=== PATIENT | female | born 1945 | race Caucasian/White ===

== ENCOUNTER → 2016-05-28 | Outpatient (CLI) | payer OTHER, BC ==
[~2016-05-28] MED LIST: CALC500C70 PO; CHOL400T; LEVO100T PO
[2016-05-28 09:26] LABS: BASO % 0.4 %; BASO ABS # 0.02 K/uL (0-0.2); COMPLETE YES; EOS % 1.9 %; HEMATOCRIT 36.7 % (37-47); IG% 0.2 %; LYMPH % 35.8 %; LYMPH ABS # 1.86 K/uL (1.2-3.4); MEAN CELL VOLUME 93.6 fL (80-100); MEAN CORPUSCULAR HEMOGLOBIN 30.4 pg (25-34); MEAN CORPUSCULAR HGB CONC 32.4 g/dl (32-36); MEAN PLATELET VOLUME 11.5 fL (7.4-10.4); NEUT % 55.7 %; PLATELET COUNT 330 K/uL (130-400); RED BLOOD COUNT 3.92 M/uL (4.2-5.4)
[2016-05-28 09:58] LABS: CHOLESTEROL/HDL RATIO 4.3; THYROID STIMULATING HORMONE 3.51 uIu/ml (0.300-4.500)
== END | disposition home or self-care (01) ==
LOC: C.LAB1850 07:45
PROVIDERS: ATTEND Internal Medicine
DX: E55.9 Vitamin D deficiency, unspecified (principal); E78.5 Hyperlipidemia, unspecified; E03.9 Hypothyroidism, unspecified

== ENCOUNTER → 2016-06-14 | Outpatient (CLI) | payer OTHER, BC ==
[2016-06-14 16:30] LABS: BASO % 0.3 %; BASO ABS # 0.02 K/uL (0-0.2); COMPLETE YES; EOS % 1.4 %; HEMATOCRIT 35.2 % (37-47); IG% 0.1 %; LYMPH % 24.2 %; LYMPH ABS # 1.78 K/uL (1.2-3.4); MEAN CELL VOLUME 93.1 fL (80-100); MEAN CORPUSCULAR HEMOGLOBIN 30.7 pg (25-34); MEAN PLATELET VOLUME 11.5 fL (7.4-10.4); MONO % 6.3 %; NEUT % 67.7 %; PLATELET COUNT 235 K/uL (130-400); RED BLOOD COUNT 3.78 M/uL (4.2-5.4); WHITE BLOOD COUNT 7.35 K/uL (4.8-10.8)
[2016-06-14 16:48] LABS: BLOOD UREA NITROGEN 14 mg/dl (7-18); BUN/CREATININE RATIO 14.9 (10-20); CARBON DIOXIDE 32 mmol/L (21-32); CHLORIDE 104 mmol/L (98-107); CREATININE 0.93 mg/dl (0.60-1.20); GLUCOSE 84 mg/dl (70-99); POTASSIUM 3.9 mmol/L (3.5-5.1); SODIUM 141 mmol/L (136-145)
[2016-06-17 00:03] LABS: MUMPS IgG VALUE 3.55
== END | disposition home or self-care (01) ==
LOC: C.LAB1850 14:55
PROVIDERS: ATTEND Internal Medicine
DX: K11.20 Sialoadenitis, unspecified (principal)

== ENCOUNTER → 2016-06-16 | Outpatient (CLI) | payer OTHER, BC ==
--- NOTE | 2016-06-16 10:54 | DIAGNOSTIC IMAGING REPORT ---
LEFT PAROTID ULTRASOUND CLINICAL HISTORY: Left parotitis COMPARISON STUDY: No previous studies for comparison. FINDINGS: 2 intraparotid lymph nodes are visualized on the left the largest of which measures 8 x 8 x 4 mm. No other parotid gland abnormalities are identified. IMPRESSION: 2 left intraparotid lymph nodes are visualized the largest of which measures 8 mm in long axis Electronically signed by: Celestine Cox M.D. 06/16/2016 10:53 AM Dictated Date/Time: 06/16/2016 10:51 AM
== END | disposition home or self-care (01) ==
LOC: C.ULTR 10:23
PROVIDERS: ATTEND Internal Medicine
DX: K11.20 Sialoadenitis, unspecified (principal)

== ENCOUNTER → 2016-09-02 | Outpatient (CLI) | payer OTHER, BC ==
--- NOTE | 2016-09-02 13:39 | MAMMOGRAPHY REPORT ---
UNILATERAL RIGHT DIGITAL DIAGNOSTIC MAMMOGRAM TOMOSYNTHESIS WITH CAD AND TARGETED RIGHT ULTRASOUND: CLINICAL HISTORY: Six-month follow-up right breast. TECHNIQUE: Breast tomosynthesis in addition to standard 2D mammography was performed. Current study was also evaluated with a Computer Aided Detection (CAD) system. Right CC and MLO 2-D and tomosynthe sis images were obtained. COMPARISON: Comparison is made to exams dated: 03/03/2016 ultrasound, 03/03/2016 mammogram, 02/23/20 16 mammogram, 02/19/2015 mammogram, and 02/18/2014 mammogram - [facility]. BREAST COMPOSITION: The tissue of the right breast is heterogeneously dense, which may obscure small masses. FINDINGS: The previously described nodular asymmetry seen within the right breast middle depth on th e cc view only appears stable dating on prior exams including the 2009 exam, and on the tomosynthesis images has the appearance of normal fibroglandular tissue without a discrete mass or architectural d istortion noted. The remainder of the right breast is stable compared to prior exams, without suspic ious masses, calcifications, or areas of architectural distortion noted. Targeted ultrasound was performed of the previously seen hypoechoic region. In the right breast at 1 2:00, 3 cm from the nipple, there is a focal area of benign-appearing hypoechoic tissue which measure s 8 x 4 x 6 mm and is stable in size and appearance compared to the February 2016 ultrasound exam. F indings are considered benign given the morphology and stability. No suspicious masses are evident. IMPRESSION: ACR BI-RADS CATEGORY 2: BENIGN, TARGETED ULTRASOUND ACR BI-RADS CATEGORY 2: BENIGN The right breast asymmetry is stable dating back to the 2009 exam and is benign and compatible with n ormal fibroglandular tissue. Benign-appearing hypoechoic tissue in the right 12:00 breast on ultraso und is stable. There is no mammographic or targeted sonographic evidence of malignancy. Return to an nual mammogram screening schedule is recommended, due February 2017. The patient has been verbally n otified of the results. Approximately 10% of breast cancers are not detected with mammography. A negative mammographic report should not delay biopsy if a clinically suggestive mass is present. Marlene Bland M.D. ah/:09/02/2016 11:05:32 Attending Technologist: Marybeth GODWIN,R, M, [facility] Personnel Supervisor: Sherice Chaudhari RT(R)(M), [facility] letter sent: Normal 1/2 BI-RADS Code: ACR BI-RADS Category 2: Benign Ultrasound BI-RADS: ACR BI-RADS Category 2: Benign
== END | disposition home or self-care (01) ==
LOC: C.MAMM 10:20
PROVIDERS: ATTEND Obstetrics & Gynecology
DX: N64.89 Other specified disorders of breast (principal)

== ENCOUNTER → 2016-09-09 | Outpatient (CLI) | payer OTHER, BC | END | disposition home or self-care (01) | LOC: C.MAMM 09:00 | PROVIDERS: ATTEND Internal Medicine | DX: M85.851 Other specified disorders of bone density and structure, right thigh (principal); M85.852 Other specified disorders of bone density and structure, left thigh ==

== ENCOUNTER → 2016-12-02 | Outpatient (CLI) | payer OTHER, BC ==
[2016-12-02 12:11] LABS: BASO % 0.4 %; BASO ABS # 0.02 K/uL (0-0.2); COMPLETE YES; EOS % 1.9 %; HEMATOCRIT 38.5 % (37-47); IG% 0.2 %; LYMPH % 28.8 %; MEAN CELL VOLUME 96.3 fL (80-100); MEAN CORPUSCULAR HEMOGLOBIN 30.3 pg (25-34); MEAN CORPUSCULAR HGB CONC 31.4 g/dl (32-36); MEAN PLATELET VOLUME 11.9 fL (7.4-10.4); MONO % 10.7 %; PLATELET COUNT 256 K/uL (130-400); WHITE BLOOD COUNT 5.21 K/uL (4.8-10.8)
== END | disposition home or self-care (01) ==
LOC: C.LAB1850 10:57
PROVIDERS: ATTEND Internal Medicine
DX: E03.9 Hypothyroidism, unspecified (principal); D64.9 Anemia, unspecified

== ENCOUNTER → 2017-02-28 | Outpatient (CLI) | payer OTHER, BC ==
--- NOTE | 2017-03-01 07:54 | MAMMOGRAPHY REPORT ---
BILATERAL DIGITAL SCREENING MAMMOGRAM TOMOSYNTHESIS WITH CAD: 02/28/2017 CLINICAL HISTORY: Routine screening. Patient has no complaints. TECHNIQUE: Breast tomosynthesis in addition to standard 2D mammography was performed. Current study was also evaluated with a Computer Aided Detection (CAD) system. COMPARISON: Comparison is made to exams dated: 09/02/2016 mammogram, 03/03/2016 mammogram, 02/23/2016 mammogram, 02/19/2015 mammogram, 02/18/2014 mammogram, and 02/15/2013 mammogram - [facility]. BREAST COMPOSITION: The tissue of both breasts is heterogeneously dense, which may obscure small mas ses. FINDINGS: A linear scar marker overlies the upper outer quadrant of the left breast, denoting the are a of prior lumpectomy. The parenchymal pattern is similar to prior mammograms. There is stable nodu lar asymmetry in the lateral, middle to posterior right breast. Scattered benign-appearing round and rim calcifications. No suspicious new mass, architectural distortion or cluster of microcalcificati ons is seen. IMPRESSION: ACR BI-RADS CATEGORY 1: NEGATIVE There is no mammographic evidence of malignancy. A 1 year screening mammogram is recommended. The pa tient will receive written notification of the results. Approximately 10% of breast cancers are not detected with mammography. A negative mammographic report should not delay biopsy if a clinically suggestive mass is present. Danielle Mccurdy M.D. ay/:02/28/2017 17:00:48 Birth Certificate Clerk: Stephany GODWIN(Earl)([place])([place]), [facility] letter sent: Normal 1/2 BI-RADS Code: ACR BI-RADS Category 1: Negative
== END | disposition home or self-care (01) ==
LOC: C.MAMM 13:20
PROVIDERS: ATTEND Obstetrics & Gynecology
DX: Z12.31 Encounter for screening mammogram for malignant neoplasm of breast (principal)

== ENCOUNTER → 2017-03-30 | Outpatient (CLI) | payer OTHER, BC ==
[2017-04-08 10:23] LABS: FECAL OCCULT BLOOD #1 NEGATIVE (NEGATIVE); FECAL OCCULT BLOOD #2 NEGATIVE (NEGATIVE); FECAL OCCULT BLOOD #3 NEGATIVE (NEGATIVE)
== END | disposition home or self-care (01) ==
LOC: C.LABSPEC 10:13
PROVIDERS: ATTEND Internal Medicine
DX: Z12.11 Encounter for screening for malignant neoplasm of colon (principal)

== ENCOUNTER → 2017-06-02 | Outpatient (CLI) | payer OTHER, BC ==
[2017-06-02 12:33] LABS: BASO % 0.4 %; BASO ABS # 0.02 K/uL (0-0.2); EOS % 1.3 %; EOS ABS # 0.06 K/uL (0-0.5); HEMATOCRIT 36.8 % (37-47); IG# 0.01 K/uL (0.00-0.02); LYMPH % 27.8 %; LYMPH ABS # 1.33 K/uL (1.2-3.4); MEAN CELL VOLUME 94.8 fL (80-100); MEAN CORPUSCULAR HEMOGLOBIN 30.9 pg (25-34); MEAN CORPUSCULAR HGB CONC 32.6 g/dl (32-36); MEAN PLATELET VOLUME 11.8 fL (7.4-10.4); MONO % 9.2 %; MONO ABS # 0.44 K/uL (0.11-0.59); NEUT % 61.1 %; NEUT ABS # 2.93 K/uL (1.4-6.5); PLATELET COUNT 230 K/uL (130-400); RED CELL DISTRIBUTION WIDTH CV 13.7 % (11.5-14.5); RED CELL DISTRIBUTION WIDTH SD 47.3 fL (36.4-46.3); WHITE BLOOD COUNT 4.79 K/uL (4.8-10.8)
[2017-06-02 12:55] LABS: BLOOD UREA NITROGEN 20 mg/dl (7-18); CALCIUM 9.2 mg/dl (8.5-10.1); CARBON DIOXIDE 30 mmol/L (21-32); CREATININE 0.84 mg/dl (0.60-1.20); GLUCOSE 73 mg/dl (70-99); POTASSIUM 4.2 mmol/L (3.5-5.1); SODIUM 138 mmol/L (136-145)
[2017-06-02 13:05] LABS: CHOLESTEROL 234 mg/dl (0-200); LDL CHOLESTEROL CALCULATED 149 mg/dl
== END | disposition home or self-care (01) ==
LOC: C.LAB1850 11:27
PROVIDERS: ATTEND Internal Medicine
DX: D64.9 Anemia, unspecified (principal); E03.9 Hypothyroidism, unspecified; E55.9 Vitamin D deficiency, unspecified

== ENCOUNTER 2022-01-08 13:16 | Observation (INO) ==
--- NOTE | 2022-01-08 13:40 | CT Scan Report ---
HEAD CT NONCONTRAST CT DOSE: 537.48 mGy.cm HISTORY: Aphasia. Stroke Alert TECHNIQUE: Multiaxial CT images of the head were performed without the use of intravenous contrast. A utomated exposure control was utilized for this study. A dose lowering technique was utilized adheri ng to the principles of ALARA. Comparison: None. Findings: The paranasal sinuses and mastoid air cells are clear. The calvarium and skull base are int act. There is no mass, hematoma, midline shift, acute infarct. White matter hypodensity is nonspecifi c but suggestive of microvascular ischemic change. The ventricles and sulci demonstrate mild age-rela jose francisco involutional changes. Impression: No acute intracranial abnormality. ACT 112: Negative or not required by law. Electronically signed by: Cody Bowman M.D. 01/08/2022 1:38 PM
[2022-01-08] MEDS ORDERED: LABETALOL HCL IV 5 MG/ML 20ML IV ONE (13:54)
--- NOTE | 2022-01-08 13:57 | CT Scan Report ---
CT ANGIOGRAM OF THE NECK CLINICAL HISTORY: Aphasia. Right-sided weakness. COMPARISON STUDY: No priors. TECHNIQUE: Following the IV administration of 120 of Optiray 320, CT angiogram of the neck was perfor med from the aortic arch to the skull base. Images are reviewed in the axial, sagittal, and coronal p lanes. 3-D MIPS images are created and assessed. IV contrast was administered without complication. A ll measurements were calculated based on NASCET criteria. A dose lowering technique was utilized adh ering to the principles of ALARA. FINDINGS: Thoracic aorta: There is atherosclerotic calcification of the thoracic inlet. Visualized portions of the thoracic aorta are normal in caliber. The aortic arch demonstrates standard 3-vessel anatomy. Right carotid arterial system: The right common carotid artery is widely patent, as are the right int ernal and external carotid arteries. Mild plaque is noted in the carotid bulb. Left carotid arterial system: The left common carotid artery is widely patent, as are the left internet merchant al and external carotid arteries. Vertebral arteries: The vertebral arteries are widely patent bilaterally and codominant. Subclavian arteries: Widely patent bilaterally. Intracranial vasculature: The visualized intracranial vessels at the skull base are patent. Jugular veins: Widely patent bilaterally. Brain parenchyma: The visualized brain parenchyma the skull base is within normal limits. Lung apices: Partially visualized upper lobe lung parenchyma appears clear. Soft tissues: The visualized pharyngeal soft tissues are normal in appearance noting angiographic pha se technique. The oropharyngeal airway appears widely patent. The thyroid gland is atrophic. The sali vary glands are normal in appearance. No cervical lymphadenopathy is seen. Skeletal structures: The skeletal structures are osteopenic. The visualized calvarium at the skull ba se appears intact. The imaged cervical spine is maintains noting mild multilevel spondylosis. No lyti c or blastic lesion is seen. Sinuses and mastoids: The visualized paranasal sinuses are clear. The mastoid air cells are well pneu matized. IMPRESSION: Unremarkable CT angiogram of the neck. ACT 112: Negative or not required by law. Electronically signed by: Aneudy Ewing M.D. 01/08/2022 1:56 PM
[2022-01-08 14:00] LABS: Hematocrit (blood only) 33.9 % (34.1-44.9); Hemoglobin 11.3 g/dl (12.0-16.0); Mean Corpuscular Hemoglobin 31.4 pg (25.0-34.0); Mean Corpuscular Hgb Conc 33.3 g/dL (32.0-36.0); Mean Corpuscular Volume 94.2 fL (80.0-100.0); Mean Platelet Volume 11.4 fL (9.4-12.3); Platelet Count 229 K/uL (130-400); RDW Coefficient of Variation 13.2 % (11.5-14.5)
[2022-01-08 14:06] LABS: iSTAT Creatinine 0.9 mg/dl (0.6-1.3); iSTAT Hemoglobin 11.2 g/dl (12.0-16.0); iSTAT Ionized Calcium 1.15 mmol/l (1.12-1.32); iSTAT Potassium 3.4 mmol/L (3.3-5.0)
--- NOTE | 2022-01-08 14:12 | Emergency Department Note ---
General (ED) Blank Date of Service January 08, 2022 ED Visit Note I personally performed a history and examined the patient in conjunction with Dr. Joy. Additional information regarding the history, physical, assessment, and plan were discussed with supervising attending physician and are noted in their ED visit note. Resident Activity Tracking Resident Involvement: Resident Care Provided Care Provided: Adult ED
--- NOTE | 2022-01-08 14:13 | Emergency Department Note ---
History of Present Illness General Chief complaint: Neuro Symptoms/Deficit Stated complaint: NUMBNESS ON RIGHT SIDE, FROM NECK DOWN ARM Time Seen by Provider: 01/08/22 13:32 History of Present Illness Provider complaint: Stroke symptoms Onset (ago): hour(s) 1 76-year-old female presents emergency department for strokelike symptoms. Patient is having difficulty speaking speaking fragments however she does report that 1 hour ago she started having numbness in the right side of her body. No falls or trauma. No history of intracerebral surgery or intracerebral bleeding. No blood thinners. No seizure. Home Medications Medication Instructions Recorded Confirmed Type cetirizine 10 mg tablet 10 mg PO DAILY 12/05/18 01/08/22 History cholecalciferol (vitamin D3) 50 1,000 unit PO DAILY #60 caps 12/29/20 01/08/22 History mcg (2,000 unit) capsule glucosamine-chondroitin 250 mg-200 1 tab PO DAILY 05/05/21 01/08/22 History mg tablet (Osteo Bi-Flex) lactobacillus combo no.11 15 1 cap PO DAILY 05/05/21 01/08/22 History billion cell sprinkle capsule (Probiotic) levothyroxine 100 mcg tablet 50 mcg PO .TUESDAY AM 01/08/22 01/08/22 History levothyroxine 100 mcg tablet 100 mcg PO [id number] 01/08/22 01/08/22 History Allergies Allergy/AdvReac Type Severity Reaction Status Date / Time animal dander Allergy Verified 10/06/21 08:59 mold Allergy Verified 10/06/21 08:59 No Known Drug Allergies Allergy Verified 10/06/21 08:59 Pollen Allergy Uncoded 10/06/21 08:59 Trees Allergy Uncoded 10/06/21 08:59 Past Med/Surg History Medical History Foreign body in right foot Hypothyroidism Surgical History H/O left wrist surgery History of surgical removal of skin lesion S/P breast lumpectomy S/P correction of deviated nasal septum Family History Brother Myocardial infarction Coronary heart disease Lung cancer Daughter Breast cancer Mother Congestive heart failure Father Lung cancer Sister Osteoporosis Denies family history of Ovarian cancer Prostate cancer Colorectal cancer Social History Smoking Status: Never smoker Hx Alcohol Use: No Hx Substance Use: No Preferred Language: [place]de[place] Communication Ability: Effective Visual Impairment: No Limitations Hearing Ability: Normal Employment Adjudicator Required: No Beliefs That Will Affect Care: None marital status: Current Living Situation: Alone current occupational status: retired current occupation: book keeper/marketing secretary Feels Safe at Home: Yes Safety Concerns: Feels Safe At This Time Dental Care, Regularly: Yes Physical Activity Frequency: Does not Exercise Seatbelt Use: always Sunscreen Use: No Assistive Devices: Glasses Review of Systems A total of 10 systems reviewed and were otherwise negative Physical Exam Vital Signs Vital Signs - 24 hr 01/08/22 13:22 01/08/22 14:21 01/08/22 13:47 Temperature 36.9 C Temperature Source Temporal Artery Scan Pulse Rate 101 H Pulse Rate from SpO2 Sensor Pulse Rhythm Regular Respiratory Rate 16 15 Respiratory Effort / Characteristics Non-Labored Spontaneous Respiratory Depth Normal Blood Pressure 182/98 H Blood Pressure Mean 126 Pulse Oximetry 98 Oxygen Delivery Method Room Air Sepsis Recent Fever Within 48 Hours No Sepsis New/Unexplained Change in Mental Status No Sepsis Action Taken by Nursing No Action Required 01/08/22 13:50 01/08/22 13:50 01/08/22 13:55 Temperature Temperature Source Pulse Rate 92 H 93 H Pulse Rate from SpO2 Sensor 90 93 H Pulse Rhythm Respiratory Rate 12 22 Respiratory Effort / Characteristics Respiratory Depth Blood Pressure 176/87 H Blood Pressure Mean 116 Pulse Oximetry 95 97 Oxygen Delivery Method Sepsis Recent Fever Within 48 Hours Sepsis New/Unexplained Change in Mental Status Sepsis Action Taken by Nursing 01/08/22 13:55 01/08/22 14:00 01/08/22 14:01 Temperature Temperature Source Pulse Rate 92 H 91 H Pulse Rate from SpO2 Sensor 91 H 90 Pulse Rhythm Respiratory Rate 17 15 Respiratory Effort / Characteristics Respiratory Depth Blood Pressure 174/88 H Blood Pressure Mean 116 Pulse Oximetry 98 97 Oxygen Delivery Method Sepsis Recent Fever Within 48 Hours Sepsis New/Unexplained Change in Mental Status Sepsis Action Taken by Nursing 01/08/22 14:01 01/08/22 14:05 01/08/22 14:05 Temperature Temperature Source Pulse Rate 87 Pulse Rate from SpO2 Sensor Pulse Rhythm Respiratory Rate 13 Respiratory Effort / Characteristics Respiratory Depth Blood Pressure 188/93 H 182/100 H Blood Pressure Mean 124 127 Pulse Oximetry Oxygen Delivery Method Sepsis Recent Fever Within 48 Hours Sepsis New/Unexplained Change in Mental Status Sepsis Action Taken by Nursing 01/08/22 14:10 01/08/22 14:11 01/08/22 14:11 Temperature Temperature Source Pulse Rate 88 88 Pulse Rate from SpO2 Sensor Pulse Rhythm Respiratory Rate 15 18 Respiratory Effort / Characteristics Respiratory Depth Blood Pressure 173/96 H Blood Pressure Mean 121 Pulse Oximetry Oxygen Delivery Method Sepsis Recent Fever Within 48 Hours Sepsis New/Unexplained Change in Mental Status Sepsis Action Taken by Nursing 01/08/22 14:20 01/08/22 14:30 01/08/22 14:30 Temperature Temperature Source Pulse Rate 91 H 91 H Pulse Rate from SpO2 Sensor Pulse Rhythm Respiratory Rate 18 21 Respiratory Effort / Characteristics Respiratory Depth Blood Pressure 174/98 H Blood Pressure Mean 123 Pulse Oximetry Oxygen Delivery Method Sepsis Recent Fever Within 48 Hours Sepsis New/Unexplained Change in Mental Status Sepsis Action Taken by Nursing 01/08/22 14:40 01/08/22 14:50 01/08/22 15:00 Temperature Temperature Source Pulse Rate 89 87 Pulse Rate from SpO2 Sensor Pulse Rhythm Respiratory Rate 12 20 Respiratory Effort / Characteristics Respiratory Depth Blood Pressure 192/108 H Blood Pressure Mean 136 Pulse Oximetry Oxygen Delivery Method Sepsis Recent Fever Within 48 Hours Sepsis New/Unexplained Change in Mental Status Sepsis Action Taken by Nursing 01/08/22 15:00 Temperature Temperature Source Pulse Rate 87 Pulse Rate from SpO2 Sensor Pulse Rhythm Respiratory Rate 19 Respiratory Effort / Characteristics Respiratory Depth Blood Pressure Blood Pressure Mean Pulse Oximetry Oxygen Delivery Method Sepsis Recent Fever Within 48 Hours Sepsis New/Unexplained Change in Mental Status Sepsis Action Taken by Nursing Physical Exam HENT: Exam performed. -Head: Normocephalic and atraumatic. -Right Ear: External ear normal. No mastoid tenderness. -Left Ear: External ear normal. No mastoid tenderness. -Mouth/Throat: The oropharynx is clear and moist. No trismus in the jaw. No dental abscesses or uvula swelling. No oropharyngeal exudate or tonsillar abscesses. EYES: Conjunctivae and EOM are normal. Pupils are equal, round, and reactive to light. Right eye exhibits no discharge. Left eye exhibits no discharge. No scleral icterus. NECK: Normal range of motion. Neck supple. No JVD present. No spinous process tenderness present. No carotid bruit present. No rigidity. No tracheal deviation and normal range of motion present. No Brudzinski's sign and no Kernig's sign noted. CV: Normal rate, regular rhythm, normal heart sounds and intact distal pulses. There is no peripheral edema. Palpable radial pulses bue. PULM/CHEST: Effort normal and breath sounds normal. No respiratory distress. No stridor. She has no wheezes. She has no rales. -Chest Wall: She exhibits no tenderness. ABD: The abdomen is soft. MUSC/SKEL: Normal range of motion. There is no peripheral edema, tenderness or deformity. LYMPH: No cervical adenopathy. NEURO: NIHSS: 3 (4:1, 9:1, 10:1) Course Course 1332: The patient was evaluated in room A1. A complete history and physical exam was performed Cardiac monitoring: An order was placed for continuous cardiac monitoring. The monitor shows a rate of 90 with sinus rhythm Code stroke called. 1349. Spoke with Dr. Sarah Abdi telemetry neurology who will evaluate the patient. 1413: Imaging within normal limits. Dr. Smith evaluated the patient and states her symptoms have completely resolved. She thinks that the patient has a TIA. She recommends patient be given aspirin to be admitted for TIA work-up. [facility] hospitalist team will be notified. Administered Medications Discontinued Medications Aspirin (Aspirin 81 Mg Chew) 324 mg PO NOW STA Stop: 01/08/22 14:15 Last Admin: 01/08/22 15:08 Dose: 324 mg Documented By: PHI Labetalol HCl (Labetalol Hcl Iv 5 Mg/Ml 20ml) Confirm Administered Dose 10 mg IV .STK-MED ONE Stop: 01/08/22 13:55 Last Admin: 01/08/22 15:08 Dose: Not Given Documented By: PHI Medical Decision Making Laboratory Data Result diagrams: 01/08/22 13:53 01/08/22 13:53 Lab Results 01/08/22 01/08/22 01/08/22 Range/Units 13:53 13:53 13:53 WBC 7.70 (4.8-10.8) K/ul RBC 3.60 L (3.93-5.22) M/uL Hgb 11.3 L (12.0-16.0) g/dl POC Hgb (12.0-16.0) g/dl Hct 33.9 L (34.1-44.9) % POC Hct (37-47) % MCV 94.2 (80.0-100.0) fL MCH 31.4 (25.0-34.0) pg MCHC 33.3 (32.0-36.0) g/dL RDW Std Deviation 46.0 (36.4-46.3) fL RDW Coeff of Lyndsey 13.2 (11.5-14.5) % Plt Count 229 (130-400) K/uL MPV 11.4 (9.4-12.3) fL PT 11.0 (9.0-12.0) Seconds INR 1.0 (0.9-1.1) APTT 28.2 (21.0-31.0) Seconds PTT Ratio 1.0 POC Sodium (135-144) mmol/L Sodium 134 L (136-145) mmol/L POC Potassium (3.3-5.0) mmol/L Potassium 3.5 (3.5-5.1) mmol/L POC Chloride (101-112) mmol/L Chloride 101 (98-107) mmol/L Carbon Dioxide 24 (21-32) mmol/L POC Total CO2 (24-31) mmol/L Anion Gap 9 (3-11) POC Anion Gap (16-25) mmol/L POC BUN (7-18) mg/dl BUN 15 (6-23) mg/dl Creatinine 0.88 (0.6-1.2) mg/dl POC Creatinine (0.6-1.3) mg/dl Est Cr Clr Drug Dosing Not Reportable Est GFR ( Amer) 72.9 ml/min Est GFR (Non-Af Amer) 62.9 ml/min BUN/Creatinine Ratio 17.0 (10-20) Glucose 89 (70-99(Fasting)) mg/dl POC Glucose (other) (70-99) mg/dl Calcium 9.2 (8.5-10.1) mg/dl POC Ioniz Calcium Monisha (1.12-1.32) mmol/l Magnesium 2.1 (1.7-2.4) mg/dl Total Bilirubin 0.6 (0.2-1.0) mg/dl AST 14 (13-39) U/L ALT 12 (7-52) U/L Alkaline Phosphatase 45 (34-104) U/L Troponin I High Sens 5.7 (0-14) pg/ml Total Protein 6.8 (6.0-8.3) gm/dl Albumin 3.7 (3.4-5.0) gm/dl Globulin 3.1 (2.5-4.0) gm/dl Albumin/Globulin Ratio 1.2 (0.9-2) SARS-CoV-2, RNA, NAAT (NEGATIVE) 01/08/22 01/08/22 Range/Units 13:54 14:37 WBC (4.8-10.8) K/ul RBC (3.93-5.22) M/uL Hgb (12.0-16.0) g/dl POC Hgb 11.2 L (12.0-16.0) g/dl Hct (34.1-44.9) % POC Hct 33 L (37-47) % MCV (80.0-100.0) fL MCH (25.0-34.0) pg MCHC (32.0-36.0) g/dL RDW Std Deviation (36.4-46.3) fL RDW Coeff of Lyndsey (11.5-14.5) % Plt Count (130-400) K/uL MPV (9.4-12.3) fL PT (9.0-12.0) Seconds INR (0.9-1.1) APTT (21.0-31.0) Seconds PTT Ratio POC Sodium 136 (135-144) mmol/L Sodium (136-145) mmol/L POC Potassium 3.4 (3.3-5.0) mmol/L Potassium (3.5-5.1) mmol/L POC Chloride 100 L (101-112) mmol/L Chloride (98-107) mmol/L Carbon Dioxide (21-32) mmol/L POC Total CO2 26 (24-31) mmol/L Anion Gap (3-11) POC Anion Gap 15.0 L (16-25) mmol/L POC BUN 14 (7-18) mg/dl BUN (6-23) mg/dl Creatinine (0.6-1.2) mg/dl POC Creatinine 0.9 (0.6-1.3) mg/dl Est Cr Clr Drug Dosing Est GFR ( Amer) ml/min Est GFR (Non-Af Amer) ml/min BUN/Creatinine Ratio (10-20) Glucose (70-99(Fasting)) mg/dl POC Glucose (other) 92 (70-99) mg/dl Calcium (8.5-10.1) mg/dl POC Ioniz Calcium Monisha 1.15 (1.12-1.32) mmol/l Magnesium (1.7-2.4) mg/dl Total Bilirubin (0.2-1.0) mg/dl AST (13-39) U/L ALT (7-52) U/L Alkaline Phosphatase (34-104) U/L Troponin I High Sens (0-14) pg/ml Total Protein (6.0-8.3) gm/dl Albumin (3.4-5.0) gm/dl Globulin (2.5-4.0) gm/dl Albumin/Globulin Ratio (0.9-2) SARS-CoV-2, RNA, NAAT NEGATIVE (NEGATIVE) Imaging Data Radiologist's Impression: Head CT 01/08/22 13:[address] DOSE: 537.48 mGy.cm HISTORY: Aphasia. Stroke Alert TECHNIQUE: Multiaxial CT images of the head were performed without the use of intravenous contrast. Automated exposure control was utilized for this study. A dose lowering technique was utilized adhering to the principles of ALARA. Comparison: None. Findings: The paranasal sinuses and mastoid air cells are clear. The calvarium and skull base are intact. There is no mass, hematoma, midline shift, acute infarct. White matter hypodensity is nonspecific but suggestive of microvascular ischemic change. The ventricles and sulci demonstrate mild age-related involutional changes. Impression: No acute intracranial abnormality. ACT 112: Negative or not required by law. Electronically signed by: Cody Bowman M.D. 01/08/2022 1:38 PM Head CTA 01/08/22 13:37 CT ANGIOGRAM OF THE BRAIN CLINICAL HISTORY: Aphasia. Right-sided weakness. COMPARISON STUDY: Unenhanced CT of the brain performed concurrently on 01/08/2022. TECHNIQUE: Following the IV administration of 120 cc of Optiray 320, CT angiogram of the brain was performed from the skull base to the vertex. Images are reviewed in the axial, sagittal, and coronal planes. 3-D MIPS images are created and assessed. IV contrast was administered without complication. A dose lowering technique was utilized adhering to the principles of ALARA. FINDINGS: Brain parenchyma: There is age-related involutional change noting mild subcortical and periventricular microangiopathic disease. There is no evidence of hemorrhage, mass effect, or acute territorial ischemia noting angiographic phase technique. There is no evidence of enhancing mass lesion on the angiogram phase images. No extra-axial fluid collection is seen. Torres-white matter differentiation is preserved. Ventricles, sulci, and cisterns: Normal in configuration. CT angiogram of the brain: There is atherosclerotic calcification of the cavernous carotid arteries. The internal carotid arteries are widely patent, as are the anterior and middle cerebral arteries. The vertebrobasilar system and posterior cerebral arteries are widely patent. The left vertebral artery is dom inant. There is no aneurysm, high-grade stenosis, or focal vessel cutoff identified throughout the intracranial circulation. Dural sinuses: Clear as visualized. Orbits: The bony orbits are intact. The orbital contents are normal as visualized noting bilateral ocular lens implants. Sinuses and mastoids: The paranasal sinuses are clear. The mastoid air cells are well pneumatized. Calvarium: Unremarkable. IMPRESSION: 1. There is no evidence of hemorrhage, mass effect, or acute territorial ischemia noting angiographic phase technique. 2. Unremarkable CT angiogram of the neck. ACT 112: Negative or not required by law. Electronically signed by: Aneudy Ewing M.D. 01/08/2022 2:31 PM Neck CTA 01/08/22 13:37 CT ANGIOGRAM OF THE NECK CLINICAL HISTORY: Aphasia. Right-sided weakness. COMPARISON STUDY: No priors. TECHNIQUE: Following the IV administration of 120 of Optiray 320, CT angiogram of the neck was performed from the aortic arch to the skull base. Images are reviewed in the axial, sagittal, and coronal planes. 3-D MIPS images are created and assessed. IV contrast was administered without complication. All measurements were calculated based on NASCET criteria. A dose lowering technique was utilized adhering to the principles of ALARA. FINDINGS: Thoracic aorta: There is atherosclerotic calcification of the thoracic inlet. Visualized portions of the thoracic aorta are normal in caliber. The aortic arch demonstrates standard 3-vessel anatomy. Right carotid arterial system: The right common carotid artery is widely patent, as are the right internal and external carotid arteries. Mild plaque is noted in the carotid bulb. Left carotid arterial system: The left common carotid artery is widely patent, as are the left internal and external carotid arteries. Vertebral arteries: The vertebral arteries are widely patent bilaterally and codominant. Subclavian arteries: Widely patent bilaterally. Intracranial vasculature: The visualized intracranial vessels at the skull base are patent. Jugular veins: Widely patent bilaterally. Brain parenchyma: The visualized brain parenchyma the skull base is within normal limits. Lung apices: Partially visualized upper lobe lung parenchyma appears clear. Soft tissues: The visualized pharyngeal soft tissues are normal in appearance noting angiographic phase technique. The oropharyngeal airway appears widely patent. The thyroid gland is atrophic. The salivary glands are normal in appearance. No cervical lymphadenopathy is seen. Skeletal structures: The skeletal structures are osteopenic. The visualized calvarium at the skull base appears intact. The imaged cervical spine is maintains noting mild multilevel spondylosis. No lytic or blastic lesion is seen. Sinuses and mastoids: The visualized paranasal sinuses are clear. The mastoid air cells are well pneumatized. IMPRESSION: Unremarkable CT angiogram of the neck. ACT 112: Negative or not required by law. Electronically signed by: Aneudy Ewing M.D. 01/08/2022 1:56 PM [facility] Narrative 1332: The patient was evaluated in room A1. A complete history and physical exam was performed Cardiac monitoring: An order was placed for continuous cardiac monitoring. The monitor shows a rate of 90 with sinus rhythm Code stroke called. 1349. Spoke with Dr. Sarah Abdi telemetry neurology who will evaluate the patient. 1413: Imaging within normal limits. Dr. Smith evaluated the patient and states her symptoms have completely resolved. She thinks that the patient has a TIA. She recommends patient be given aspirin to be admitted for TIA work-up. [facility] hospitalist team will be notified. Impression & Plan TIA (transient ischemic attack) Discharge Plan Visit Data Chief Complaint: Neuro Symptoms/Deficit Stated Complaint: NUMBNESS ON RIGHT SIDE, FROM NECK DOWN ARM ED Provider: Leland Joy Discharge Problem: TIA (transient ischemic attack) Patient Disposition: Admitted As Inpatient Discharge Instructions Interventions: ED Discharge Assessment Last Done: 01/08/22 18:24
[2022-01-08] MEDS ORDERED: ASPIRIN 81 MG CHEW PO STA (14:14)
[2022-01-08 14:24] LABS: Partial Thromboplastin Time 28.2 Seconds (21.0-31.0)
[2022-01-08 14:29] LABS: Troponin I High Sensitivity 5.7 pg/ml (0-14)
--- NOTE | 2022-01-08 14:31 | History & Physical Report ---
Date of Service January 08, 2022 Assessment & Plan (1) TIA (transient ischemic attack): Plan: - Expressive aphasia, dysarthria, right face/arm paraesthesias onset 12:30 PM 01/08, resolved in ED around 2:30 PM. - Full dose aspirin given. Will start on ASA 81 mg daily starting tomorrow. - MRI, routine, tomorrow. - Echo in a.m. - CBC, BMP, HbA1c,lipid panel in a.m. - N.p.o. for now. - PT, OT, ST to evaluate in a.m. - Labetalol 10 mg q6h prn for SBP > 200 during initial 24 hours to allow for permissive HTN. - Avoid hypotension, hypoglycemia. - Head CT, CTA of head and neck as above, no hemorrhage/mass/ischemia, or significant stenosis. - Telemetry for 24 hours, evaluate for episodes of atrial fibrillation. (2) Hyperlipidemia: Plan: - Statin intolerant in past, may be good cacndidate for PCSK9 inhibitor. (3) Adjustment disorder with anxiety: Plan: - Has been having issues with anxiety as her has been assisted living for the past 15 months, recently on Tuesday. - Has neighbors, daughters as a support system. Has not wanted medications to help manage this up to this point. (4) Hypothyroidism: Plan: - Can continue levothyroxine. (5) Allergic rhinitis due to pollen: Plan: - Continue Zyrtec. (6) Vitamin D deficiency disease: Plan: - Continue vitamin D supplementation. Plan - Observation on med/telemetry floor. - SCDs for VTE PPx. - Full code. History of Present Illness Primary Care Provider: Americo Kingsley MD Cassy Segundo is a 76-year-old female hypothyroidism, anemia, hyperlipidemia, osteopenia, anxiety, and low back pain who is presented today as a stroke alert. Patient presented via private vehicle with her neighbor to the ED and was extremely aphasic in triage and unable to answer any questions. Her daughter did call to inform that an hour ago she developed right arm numbness. She also has a slight right facial droop, as well as right facial numbness during triage. LKW 12:30 PM. Stroke neurologist was consulted, Dr. Elizondo met with patient and ED staff via telemedicine. Given the time of evaluation, patient's deficits are resolving on their own, TNKase is not indicated. She was given a full dose of aspirin as well as 10 mg IV labetalol for her blood pressure which was quite elevated. Patient now speaking coherently, without any aphasia or remaining numbness. States she has been under a great deal of stress over the past few days as her on Tuesday. Other than not sleeping and eating particularly well, she has felt her normal state of health up until this afternoon's events. She is healthy and active. She has had high cholesterol in the past, but has discontinued statins due to body aches. Blood pressure has been well controlled at outpatient visits, no history of diabetes or A. fib. Presenting BP 182/98, HR 98, RR 16, a febrile, 98% on RA. Head CT, head and neck CTA unrevealing for any hemorrhage, mass-effect, dissection, or significant stenosis. For mild anemia with Hgb of 11.3, labs otherwise unremarkable. Allergies Allergy/AdvReac Type Severity Reaction Status Date / Time animal dander Allergy Verified 10/06/21 08:59 mold Allergy Verified 10/06/21 08:59 No Known Drug Allergies Allergy Verified 10/06/21 08:59 Pollen Allergy Uncoded 10/06/21 08:59 Trees Allergy Uncoded 10/06/21 08:59 Home Medications Medication Instructions Recorded Confirmed Type cetirizine 10 mg tablet 10 mg PO DAILY 12/05/18 10/06/21 History cholecalciferol (vitamin D3) 50 1,000 unit PO DAILY #60 caps 12/29/20 10/06/21 History mcg (2,000 unit) capsule triamcinolone acetonide 55 mcg 2 spray intranasal .COMPLEX PRN 01/29/21 10/06/21 History nasal spray aerosol glucosamine-chondroitin 250 mg-200 1 tab PO DAILY 05/05/21 10/06/21 History mg tablet (Osteo Bi-Flex) lactobacillus combo no.11 15 1 cap PO DAILY 05/05/21 10/06/21 History billion cell sprinkle capsule (Probiotic) levothyroxine 100 mcg tablet 100 mcg PO DAILY #90 tabs 06/30/21 10/06/21 Rx Past Med/Surg History Medical History Foreign body in right foot Hypothyroidism Surgical History H/O left wrist surgery History of surgical removal of skin lesion S/P breast lumpectomy S/P correction of deviated nasal septum Family History Brother Myocardial infarction Coronary heart disease Lung cancer Daughter Breast cancer Mother Congestive heart failure Father Lung cancer Sister Osteoporosis Denies family history of Ovarian cancer Prostate cancer Colorectal cancer Social History Smoking Status: Never smoker Hx Alcohol Use: No Hx Substance Use: No Preferred Language: Chinese Communication Ability: Effective Visual Impairment: No Limitations Hearing Ability: Normal marital status: Current Living Situation: Spouse current occupational status: retired current occupation: book keeper/cloth hauler Feels Safe at Home: Yes Dental Care, Regularly: Yes Physical Activity Frequency: Does not Exercise Seatbelt Use: always Sunscreen Use: No Review of Systems Review of Systems: Constitutional: No fever/chills, weakness, fatigue, myalgias, anorexia, night sweats Eyes: No diplopia, no worsening or blurred vision ENT: normal hearing, no trouble swallowing Respiratory: No cough, sputum, dyspnea at rest or on exertion Cardiovascular: No chest pain, tightness or palpitations Abdomen: No pain, nausea, vomiting, diarrhea or constipation : Denies dysuria, hematuria, increased urgency/frequency, urinary retention Musculoskeletal: No joint pain, calf pain, swelling Neurologic: Right-sided facial numbness, right arm numbness, right facial droop, expressive aphasia, dysarthria onset 12:30 PM, now resolved 2:30 PM; no other deficits Psychiatric: No anxiety or depression Skin: No rash or itch Physical Exam Physical Exam: General: awake, alert, no apparent distress Head: Normocephalic, atraumatic ENT: PERRL, EOMI, no pharyngeal exudate, mucous membranes moist Chest: Clear to auscultation, on room air, no adventitious breath sounds Cardiac: Regular rate and rhythm, no murmur, no JVD, normal peripheral pulses, good capillary refill Abdominal: NABS x 4 quadrants, soft, nontender to palpation, no rebound, guarding or tenderness Extremities: Normal inspection, no peripheral edema or erythema, calfs nontender to palpation Psych: Normal mood and affect Neuro: AAO x 3, strength intact bilaterally and rated 5/5, no motor deficits, speech is clear, no peripheral sensory deficits Skin: no rash or erythema Results & Data Results & Data ([facility]) Vital Signs (Past 12 Hours) Vital Signs Temp Pulse Resp BP Pulse Ox O2 Del Method 01/08/22 14:21 Room Air 01/08/22 13:22 36.9 C 101 H 16 182/98 H 98 Laboratory Results Abnormal lab results 01/08/22 01/08/22 Range/Units 13:53 13:54 RBC 3.60 L (3.93-5.22) M/uL Hgb 11.3 L (12.0-16.0) g/dl POC Hgb 11.2 L (12.0-16.0) g/dl Hct 33.9 L (34.1-44.9) % POC Hct 33 L (37-47) % POC Chloride 100 L (101-112) mmol/L POC Anion Gap 15.0 L (16-25) mmol/L Diagnostic Findings Head CT 01/08/22 13:[address] DOSE: 537.48 mGy.cm HISTORY: Aphasia. Stroke Alert TECHNIQUE: Multiaxial CT images of the head were performed without the use of intravenous contrast. Automated exposure control was utilized for this study. A dose lowering technique was utilized adhering to the principles of ALARA. Comparison: None. Findings: The paranasal sinuses and mastoid air cells are clear. The calvarium and skull base are intact. There is no mass, hematoma, midline shift, acute infarct. White matter hypodensity is nonspecific but suggestive of microvascular ischemic change. The ventricles and sulci demonstrate mild age-related involutional changes. Impression: No acute intracranial abnormality. ACT 112: Negative or not required by law. Electronically signed by: Cody Bowman M.D. 01/08/2022 1:38 PM Head CTA 01/08/22 13:37 CT ANGIOGRAM OF THE BRAIN CLINICAL HISTORY: Aphasia. Right-sided weakness. COMPARISON STUDY: Unenhanced CT of the brain performed concurrently on 01/08/2022. TECHNIQUE: Following the IV administration of 120 cc of Optiray 320, CT angiogram of the brain was performed from the skull base to the vertex. Images are reviewed in the axial, sagittal, and coronal planes. 3-D MIPS images are created and assessed. IV contrast was administered without complication. A dose lowering technique was utilized adhering to the principles of ALARA. FINDINGS: Brain parenchyma: There is age-related involutional change noting mild subcortical and periventricular microangiopathic disease. There is no evidence of hemorrhage, mass effect, or acute territorial ischemia noting angiographic phase technique. There is no evidence of enhancing mass lesion on the angiogram phase images. No extra-axial fluid collection is seen. Torres-white matter differentiation is preserved. Ventricles, sulci, and cisterns: Normal in configuration. CT angiogram of the brain: There is atherosclerotic calcification of the cavernous carotid arteries. The internal carotid arteries are widely patent, as are the anterior and middle cerebral arteries. The vertebrobasilar system and posterior cerebral arteries are widely patent. The left vertebral artery is dominant. There is no aneurysm, high-grade stenosis, or focal vessel cutoff identified throughout the intracranial circulation. Dural sinuses: Clear as visualized. Orbits: The bony orbits are intact. The orbital contents are normal as visualized noting bilateral ocular lens implants. Sinuses and mastoids: The paranasal sinuses are clear. The mastoid air cells are well pneumatized. Calvarium: Unremarkable. IMPRESSION: 1. There is no evidence of hemorrhage, mass effect, or acute territorial ischemia noting angiographic phase technique. 2. Unremarkable CT angiogram of the neck. ACT 112: Negative or not required by law. Electronically signed by: Aneudy Ewing M.D. 01/08/2022 2:31 PM Neck CTA 01/08/22 13:37 CT ANGIOGRAM OF THE NECK CLINICAL HISTORY: Aphasia. Right-sided weakness. COMPARISON STUDY: No priors. TECHNIQUE: Following the IV administration of 120 of Optiray 320, CT angiogram of the neck was performed from the aortic arch to the skull base. Images are reviewed in the axial, sagittal, and coronal planes. 3-D MIPS images are created and assessed. IV contrast was administered without complication. All measurements were calculated based on NASCET criteria. A dose lowering technique was utilized adhering to the principles of ALARA. FINDINGS: Thoracic aorta: There is atherosclerotic calcification of the thoracic inlet. Visualized portions of the thoracic aorta are normal in caliber. The aortic arch demonstrates standard 3-vessel anatomy. Right carotid arterial system: The right common carotid artery is widely patent, as are the right internal and external carotid arteries. Mild plaque is noted in the carotid bulb. Left carotid arterial system: The left common carotid artery is widely patent, as are the left internal and external carotid arteries. Vertebral arteries: The vertebral arteries are widely patent bilaterally and codominant. Subclavian arteries: Widely patent bilaterally. Intracranial vasculature: The visualized intracranial vessels at the skull base are patent. Jugular veins: Widely patent bilaterally. Brain parenchyma: The visualized brain parenchyma the skull base is within normal limits. Lung apices: Partially visualized upper lobe lung parenchyma appears clear. Soft tissues: The visualized pharyngeal soft tissues are normal in appearance no ting angiographic phase technique. The oropharyngeal airway appears widely patent. The thyroid gland is atrophic. The salivary glands are normal in appearance. No cervical lymphadenopathy is seen. Skeletal structures: The skeletal structures are osteopenic. The visualized calvarium at the skull base appears intact. The imaged cervical spine is maintains noting mild multilevel spondylosis. No lytic or blastic lesion is seen. Sinuses and mastoids: The visualized paranasal sinuses are clear. The mastoid air cells are well pneumatized. IMPRESSION: Unremarkable CT angiogram of the neck. ACT 112: Negative or not required by law. Electronically signed by: Aneudy Ewing M.D. 01/08/2022 1:56 PM Code Status & VTE Plan Code Status Full Code. Supervising Physician Co-Signing Physician Notes Patient seen and examined, chart reviewed, case discussed with Evelyn Ford PA-C and I agree with the assessment and plan as above except as otherwise noted Labs and images reviewed Lisette is a 76-year-old female with a past medical history of hyperlipidemia, adjustment disorder with anxiety, hypothyroidism, allergic rhinitis presented to the ER as a stroke alert. Seen at the bedside. At time of bedside assessment h er symptoms have completely resolved without residual deficits. She describes difficulty with speech and some right-sided numbness in her hand which brought up and stopped her shoulder, and difficulty closing the right hand. At bedside her principal librarian strength is intact and symmetrical and speech is fluent. Sensation of soft touch is intact in both extremities bilaterally, patient thinks may be a little bit of reduced sensation in the right hand compared to the left. She reports her family has a history of high cholesterol, but she has been intolerant with muscle aches to multiple statins. Does not take aspirin at home, has been discussed for primary prevention in the past with high blood pressure but was deferred. Discussed secondary prevention and cholesterol control with patient, patient is agreeable pending further stroke work-up. No additional questions at bedside Acute CVA vs TIA Patient presented with right-sided numbness, expressive aphasia with last known normal 12:30 PM day of admission. Suspicious for L MCA territory infarct Telestroke consulted. Patient with improving symptoms at time of ER assessment, given improving symptoms and hypertension TNKase/tPA was not r ecommended Will admit overnight and continue stroke work-up, MRI and lipid panel pending. Continue aspirin 81 mg daily, patient was not on any antiplatelet prior to arrival. EKG: NSR, QTC 469. No A. fib. Continue on telemetry No leukocytosis, hemoglobin 11.3, sodium normal, POC potassium normal, Creatinine normal on admission CTA unremarkable for CThead without acute findings On ER evaluation patient hypertensive on admission to 182/98, patient given aspirin and 10 mg labetalol in ER. Continue permissive hypertension parameters at this time. Labetalol 10 mg IV every 6 hours for SBP greater than 200 - MRI pending Hypothyroidism: Continue Synthroid, TSH pending Hyperlipidemia: Previously on Lipitor, this was stopped due to muscle/joint aches. Simvastatin was started fall 2012 but discontinued due to myalgias. Patient multiple statin intolerance as outpatient, lipid panel pending given CVA can consider for PCSK9 versus fibrate based on LDL results Osteopenia: Continue calcium/vitamin D supplementation. Patient intolerant of Fosamax PG Care Time/CCT Total # of Minutes Spent Total Time Spent with Patient: Total time spent is greater than 50% in coordination of care (as documented) at patient's floor/unit and/or counseling patient: Coding Level of Care Code INT OBSERVATION CARE 70M LVL 3 Diagnoses TIA (transient ischemic attack) G45.9 Hyperlipidemia E78.5 Adjustment disorder with anxiety F43.22 Hypothyroidism E03.9 Allergic rhinitis due to pollen J30.1 Vitamin D deficiency disease E55.9
--- NOTE | 2022-01-08 14:32 | CT Scan Report ---
CT ANGIOGRAM OF THE BRAIN CLINICAL HISTORY: Aphasia. Right-sided weakness. COMPARISON STUDY: Unenhanced CT of the brain performed concurrently on 01/08/2022. TECHNIQUE: Following the IV administration of 120 cc of Optiray 320, CT angiogram of the brain was pe rformed from the skull base to the vertex. Images are reviewed in the axial, sagittal, and coronal pl anes. 3-D MIPS images are created and assessed. IV contrast was administered without complication. A dose lowering technique was utilized adhering to the principles of ALARA. FINDINGS: Brain parenchyma: There is age-related involutional change noting mild subcortical and periventricula r microangiopathic disease. There is no evidence of hemorrhage, mass effect, or acute territorial isc hemia noting angiographic phase technique. There is no evidence of enhancing mass lesion on the angio gram phase images. No extra-axial fluid collection is seen. Torres-white matter differentiation is pres erved. Ventricles, sulci, and cisterns: Normal in configuration. CT angiogram of the brain: There is atherosclerotic calcification of the cavernous carotid arteries. The internal carotid arteries are widely patent, as are the anterior and middle cerebral arteries. Th e vertebrobasilar system and posterior cerebral arteries are widely patent. The left vertebral artery is dominant. There is no aneurysm, high-grade stenosis, or focal vessel cutoff identified throughout the intracranial circulation. Dural sinuses: Clear as visualized. Orbits: The bony orbits are intact. The orbital contents are normal as visualized noting bilateral oc ular lens implants. Sinuses and mastoids: The paranasal sinuses are clear. The mastoid air cells are well pneumatized. Calvarium: Unremarkable. IMPRESSION: 1. There is no evidence of hemorrhage, mass effect, or acute territorial ischemia noting angiographic phase technique. 2. Unremarkable CT angiogram of the neck. ACT 112: Negative or not required by law. Electronically signed by: Aneudy Ewing M.D. 01/08/2022 2:31 PM
[2022-01-08 14:41] LABS: Alanine Aminotransferase 12 U/L (7-52); Albumin Globulin Ratio 1.2 (0.9-2); Albumin Level 3.7 gm/dl (3.4-5.0); Alkaline Phosphatase 45 U/L (34-104); Anion Gap 9 (3-11); Aspartate Aminotransferase 14 U/L (13-39); Bilirubin,Total 0.6 mg/dl (0.2-1.0); Blood Urea Nitrogen 15 mg/dl (6-23); Calcium 9.2 mg/dl (8.5-10.1); Carbon Dioxide 24 mmol/L (21-32); Chloride 101 mmol/L (98-107); Est GFR (African American) 72.9 ml/min; Est GFR (Non-African American) 62.9 ml/min; Globulin 3.1 gm/dl (2.5-4.0); Glucose 89 mg/dl (70-99(Fasting)); Magnesium 2.1 mg/dl (1.7-2.4); Potassium 3.5 mmol/L (3.5-5.1); Sodium 134 mmol/L (136-145); Total Protein 6.8 gm/dl (6.0-8.3)
[2022-01-08] MEDS ORDERED: PHARMACIST DISCHARGE MED REC CONSULT PRN (18:41)
[2022-01-08] MEDS ORDERED: ONDANSETRON INJ 2 MG/ML 2 ML VIAL IV PRN (18:41)
[2022-01-08] MEDS ORDERED: TRIAMCINOLONE ACET NASAL SPRAY 10.8ML BTL PRN (18:41)
[2022-01-08] MEDS ORDERED: POLYETHYLENE (MIRALAX) 17 GM PACK PO PRN (18:41)
[2022-01-08] MEDS ORDERED: ACETAMINOPHEN 325 MG TAB PO PRN (18:41)
[2022-01-08] MEDS ORDERED: LABETALOL HCL IV 5 MG/ML 20ML IV PRN (18:41)
[2022-01-08] MEDS ORDERED: ALUMINUM/MAGNESIUM SUSP 30 ML UDC PO PRN (18:41)
[2022-01-09 06:22] LABS: Basophils # (auto) 0.03 K/uL (0-0.2); Basophils % (auto) 0.5 %; Eosinophils # (auto) 0.18 K/uL (0-0.50); Hematocrit (blood only) 31.7 % (34.1-44.9); Hemoglobin 10.9 g/dl (12.0-16.0); Immature Granulocytes # (auto) 0.02 K/uL (0.00-0.02); Immature Granulocytes % (auto) 0.3 %; Lymphocytes # (auto) 1.71 K/uL (1.2-3.4); Lymphocytes % (auto) 28.7 %; Mean Corpuscular Hemoglobin 31.6 pg (25.0-34.0); Mean Corpuscular Hgb Conc 34.4 g/dL (32.0-36.0); Mean Corpuscular Volume 91.9 fL (80.0-100.0); Mean Platelet Volume 11.6 fL (9.4-12.3); Monocytes # (auto) 0.54 K/uL (0.24-0.82); Monocytes % (auto) 9.1 %; Neutrophils # (auto) 3.47 K/uL (1.4-6.5); Neutrophils % (auto) 58.4 %; Platelet Count 228 K/uL (130-400); RDW Coefficient of Variation 13.2 % (11.5-14.5); RDW Standard Deviation 44.8 fL (36.4-46.3); Red Blood Count 3.45 M/uL (3.93-5.22); White Blood Count 5.95 K/ul (4.8-10.8)
[2022-01-09] MEDS ORDERED: LEVOTHYROXINE SODIUM 100 MCG TABLET PO SCH (06:30)
[2022-01-09 06:38] LABS: BUN Creatinine Ratio 19.8 (10-20); Calcium 8.9 mg/dl (8.5-10.1); Chol HDL Ratio 3.5 (0-5); Creatinine Clr Calc Pharmacy 50.5 ml/min; Est GFR (Non-African American) 64.7 ml/min; Potassium 3.8 mmol/L (3.5-5.1)
--- NOTE | 2022-01-09 07:00 | Magnetic Resonance Report ---
MR brain wo con HISTORY: 76 years-old Female strokelike symptoms acute strokelike symptoms with elevated blood press ure COMPARISON: Head CT 01/08/2022 TECHNIQUE: Multiplanar multisequence MRI of the brain was obtained without the use of IV contrast FINDINGS: Subscription Clerk localizer images demonstrate no gross extracranial abnormality. No restricted diffusion to sugg est acute or subacute infarct. Midline structures are unremarkable. Degenerative changes of the image d cervical spine. Partially empty sella. No acute intracranial hemorrhage, midline shift, abnormal ex tra-axial collection, hydrocephalus or intracranial mass. Involutional changes. Moderate T2/FLAIR hyp erintense foci noted throughout the white matter. The cerebral venous sinuses and major arterial flow voids appear patent. Prior bilateral lens repair. Skull and soft tissues are unremarkable. Mastoid air cells and paranasal sinuses are clear. IMPRESSION: 1. No acute intracranial abnormality. No acute or subacute infarct. 2. Involutional changes with moderate chronic microvascular ischemic disease. ACT 112: Negative or not required by law. The above report was generated using voice recognition software. It may contain grammatical, syntax o r spelling errors. Electronically signed by: Bakari Ruiz M.D. 01/09/2022 6:59 AM
--- NOTE | 2022-01-09 07:33 | Discharge Summary ---
Date of Service January 09, 2022 Admission HPI Per Admitting Provider Cassy Segundo is a 76-year-old female hypothyroidism, anemia, hyperlipidemia, osteopenia, anxiety, and low back pain who is presented today as a stroke alert. Patient presented via private vehicle with her neighbor to the ED and was extremely aphasic in triage and unable to answer any questions. Her daughter did call to inform that an hour ago she developed right arm numbness. She also has a slight right facial droop, as well as right facial numbness during triage. LKW 12:30 PM. Stroke neurologist was consulted, Dr. Elizondo met with patient and ED staff via telemedicine. Given the time of evaluation, patient's deficits are resolving on their own, TNKase is not indicated. She was given a full dose of aspirin as well as 10 mg IV labetalol for her blood pressure which was quite elevated. Patient now speaking coherently, without any aphasia or remaining numbness. States she has been under a great deal of stress over the past few days as her on Tuesday. Other than not sleeping and eating particularly well, she has felt her normal state of health up until this afternoon's events. She is healthy and active. She has had high cholesterol in the past, but has discontinued statins due to body aches. Blood pressure has been well controlled at outpatient visits, no history of diabetes or A. fib. Presenting BP 182/98, HR 98, RR 16, a febrile, 98% on RA. Head CT, head and neck CTA unrevealing for any hemorrhage, mass-effect, dissection, or significant stenosis. For mild anemia with Hgb of 11.3, labs otherwise unremarkable. Admission Exam Per Admitting Provider General: awake, alert, no apparent distress Head: Normocephalic, atraumatic ENT: PERRL, EOMI, no pharyngeal exudate, mucous membranes moist Chest: Clear to auscultation, on room air, no adventitious breath sounds Cardiac: Regular rate and rhythm, no murmur, no JVD, normal peripheral pulses, good capillary refill Abdominal: NABS x 4 quadrants, soft, nontender to palpation, no rebound, guarding or tenderness Extremities: Normal inspection, no peripheral edema or erythema, calfs nontender to palpation Psych: Normal mood and affect Neuro: AAO x 3, strength intact bilaterally and rated 5/5, no motor deficits, speech is clear, no peripheral sensory deficits Skin: no rash or erythema Principal Diagnosis TIA Discharge Exam Constitutional WD/WN, vitals as above Eyes PERRL, conjunctivae normal, anicteric sclerae ENMT external ear and nose normal, oropharynx normal Neck trachea midline, no thyromegaly Respiratory normal respiratory effort, lungs clear to auscultation Cardiovascular Rate/Rhythm: regular rate and regular rhythm Extremities: no edema Gastrointestinal (Abdomen) Inspection/Auscultation: abdomen normal to inspection Percussion/Palpation: abdomen soft; abdomen nontender Musculoskeletal no cyanosis or clubbing, extremities motor strength 5/5 Skin no rashes, warm and dry Neurologic normal touch/pain/proprioception, CN's II-XI intact bilaterally and deep tendon reflexes 2+ bilaterally Psychiatric A+Ox3, euthymic affect Discharge Data Allergies Allergy/AdvReac Type Severity Reaction Status Date / Time animal dander Allergy Verified 10/06/21 08:59 mold Allergy Verified 10/06/21 08:59 No Known Drug Allergies Allergy Verified 10/06/21 08:59 Pollen Allergy Uncoded 10/06/21 08:59 Trees Allergy Uncoded 10/06/21 08:59 Consultations 01/08/22 14:12 ED Decision to Admit Stat Ordered Studies 01/08/22 13:28 CT head/brain wo con Stat 01/08/22 13:37 CT angio head w con Stat CT angio neck with con Stat 01/08/22 18:41 MR brain wo con Routine Hospital Course (1) TIA (transient ischemic attack): -Started Aspirin 81mg daily -Started Plavix 75mg daily for 20 days -Started Metoprolol Succinate 25mg daily -consider accountant to evaluate for Atrial fibrillation in outpatient -Note new prediabetes and improved lipids (1) TIA (transient ischemic attack): - Expressive aphasia, dysarthria, right face/arm paraesthesias onset 12:30 PM 01/08, resolved in ED around 2:30 PM. - Given Aspirin 325mg in ED. Started ASA 81 mg daily - Given Plavix 300mg. Will start Plavix 75mg daily in outpatient for 20 days - MRI: No acute intracranial abnormality. No acute or subacute infarct. Involutional changes with moderate chronic microvascular ischemic disease. - CT head: No acute intracranial abnormality. - CTA Head Neck: There is no evidence of hemorrhage, mass effect, or acute territorial ischemia noting angiographic phase technique. Unremarkable CT angiogram of the neck. - Echo EF 60-65% mild LVH - CBC BMP trop lipid panel unremarkable - A1c elevated at 6.1 - speech eval ordered can tolerate regular diet with thin liquids - PT/OT ordered, may return home - started Metoprolol succinate 25mg daily - recommend cardiac monitoring in outpatient to rule out atrial fibrillation (2) Hyperlipidemia: - Statin intolerant in past (muscle aches), may be good candidate for PCSK9 inhibitor. - Total cholesterol 177, LDL 110 - Given lack of stenosis noted on CTA and her greatly improved cholesterol since September, we did not start her on statins at this time. However, would recommend patient continue healthy lifestyle choices and regular monitoring of her cholesterol. (3) Adjustment disorder with anxiety: - Has been having issues with anxiety as her has been assisted living for the past 15 months, recently on Tuesday. - Has neighbors, daughters as a support system. Has not wanted medications to help manage this up to this point. (4) Hypothyroidism: - Can continue levothyroxine. (5) Allergic rhinitis due to pollen: - Continue Zyrtec. (6) Vitamin D deficiency disease: - Continue vitamin D supplementation. (7) Prediabetes -A1c 6.1 -consider lifestyle modifications, may discuss with PCP (2) Hyperlipidemia: (3) Adjustment disorder with anxiety: (4) Hypothyroidism: Total Time Total Time Spent Total Time Spent (In Minutes): <30 Discharge Plan Discharge Items Patient Disposition: Home - Self-Care Reason For Visit: TIA VS CVA Discharge Diagnosis: TIA Activity: Resume your previous activity Non-emergency contact: Primary Care Provider Call non-emergency contact if: you have any medication questions Follow-up/Referrals: Americo Kingsley MD [Primary Care Provider] - Diet: Regular Addtl Attending Provider Instructions: You were admitted to the hospital for a TIA, or transient ischemic attack. This means that one of the arteries in your brain was temporarily blocked and caused symptoms such as altered speech, sensation, and movement. Imaging of your brain did not show any permanent damage or narrow arteries, imaging of your heart showed normal function, and your symptoms have resolved at this time. We will send you home on 2 blood thinners, aspirin and plavix, to protect your arteries and prevent reoccurrence of these symptoms. Your recent stress may have also played a roll in your TIA symptoms. There is a possibility that the stress temporarily narrowed your arteries and contributed to your symptoms. We will start you on a small dose of blood pressure medication called Metoprolol to reduce the chance of your symptoms reoccuring during these trying times. If you feel lightheaded or dizzy while on this medication, please stop taking it and contact your PCP. A discharge summary will be sent to your primary care physician to ensure continuity of care. Please bring this discharge summary with you to your next office appointment so that your provider can review it at that time. Follow-up appointments: Make a follow-up appointment with your PCP within the next week. It is very important that you follow up with them shortly after discharge from the hospital. Keep all your follow-up appointments as already scheduled. If you cannot make an appointment, notify your provider. Medications: Your medication list has been reviewed and reconciled upon discharge to ensure accuracy and continuity of care. An updated list of all your medications is included with your hospital discharge paperwork. Please review this list closely, and make note of any changes. * We sent a new medication called Aspirin to your pharmacy. Take Aspirin 81mg one tablet daily * We sent a new medication called Plavix to your pharmacy. Take Plavix 75mg one tablet daily for 20 days. * We sent a new medication called Metoprolol to your pharmacy. Take Metoprolol Succinate 25mg one table daily Take your medications as instructed; do not skip a dose of your medicines. Make sure all of your doctors know every medicine you are taking (including [id number] medicines, vitamins, and supplements). Call your primary care provider before taking any new medicines (including zvmo-fax-vuvcveg medicines, vitamins, and supplements), because some of these may interact with your current medications, or may make your symptoms worse. Tell your primary care provider if you cannot afford your medications. CONTACT YOUR PRIMARY CARE PROVIDER if you experience any of the following: Persistent headache Fever, difficulty breathing Difficulty following your treatment plan, or difficulty taking medications CALL 911 OR GO TO THE EMERGENCY DEPARTMENT if you experience any of the following: Sudden, severe abdominal pain or nausea/vomiting Severe chest pain, or chest pain that radiates (moves) to your jaw or arm Sudden, severe shortness of breath or difficulty breathing Altered sensation, increased one sided weakness Altered speech or sudden confusion Thank you for allowing us to participate in your care. Pending Studies at Discharge: No Stand-Alone Forms: Medications to Prevent Stroke, [facility], Smoking Cessation Medications and DC Order Prescriptions: New clopidogrel 75 mg Tablet 75 mg PO QAM 20 Days Qty: 20 0RF aspirin 81 mg Tablet,Delayed Release (Dr/Ec) 81 mg PO QAM 30 Days Qty: 30 0RF metoprolol succinate [Toprol XL] 25 mg tablet extended release 24 hr 25 mg PO DAILY 30 Days Qty: 30 0RF Continued Probiotic 15 billion cell capsule, sprinkle 1 cap PO DAILY Rx Instructions: do not crush/chew/cut; swallow whole OR may open and sprinkle in cold drink/food cetirizine 10 mg tablet 10 mg PO DAILY cholecalciferol (vitamin D3) 50 mcg (2,000 unit) capsule 1,000 unit PO DAILY Qty: 60 Label Comments: with food glucosamine-chondroitin [Osteo Bi-Flex] 250-200 mg tablet 1 tab PO DAILY levothyroxine 100 mcg tablet 50 mcg PO .TUESDAY AM Rx Instructions: take 1/2 tablet in am before breakfast on sundays levothyroxine 100 mcg tablet 100 mcg PO [id number] Rx Instructions: take daily before breakfast every day of week except sundays Discharge Orders: Discharge Order (Routine); Ordered 01/09/22 Ordered By: Allison Bolanos/Other Patient Handouts: All About Cholesterol Control Admission Data Admit Date/Time: 01/08/22 15:04 Attending Provider: Kayden Weldon Admit Provider: David Harmon Primary Care Provider: Americo Kingsley V. Other Providers: David Harmon Other Interventions: Discharge Summary Assessment (RN) Last Done: 01/09/22 16:53 Supervising Physician Co-Signing Physician Notes I personally examined the patient and verified all franklin points of history and exam, discussed case, and agree with decision making with Dr Sherwood. Feeling better. Feels up to going home. Stress due to passing. Vitals noted, in general she is awake and alert pleasant no distress. HEENT normocephalic atraumatic mucous membranes moist. Breathing unlabored no accessory muscle use good effort. Skin shows no rashes no pallor or icterus. Neuro without focal deficits. TIAsuspect hypertensive surge and vasospasm in the face of significant emotional stresssymptoms and resolution seem consistent with intracranial vasculature, but she does not really show much of any real vascular risk at baselineto that end, beta-lamin, dual antiplatelets for now reduced to single antiplatelet in a few weeks, and then question whether or not she would benefit from indefinite antiplatelet will defer to how she is doing and follow-up. We will also set up for cardiac monitoring given that paroxysmal atrial fibrillation could be possible although less likely. Given that I doubt it was atherosclerotic, and she did have trouble with statins before, no clear need to force the issue at this time, although as she follows up if it becomes at all more clear that she has atherosclerotic disease, then would need to reconsider. Resident Activity Tracking Resident Involvement: Resident Care Provided Care Provided: Adult Hospital Medicine
[2022-01-09 08:46] LABS: Estimated Average Glucose 128 mg/dl; Hemoglobin A1C 6.1 % (4.5-5.6)
[2022-01-09] MEDS ORDERED: ASPIRIN 81 MG ECTAB PO SCH (09:00)
[2022-01-09] MEDS ORDERED: CHOLECALCIFEROL 1,000 UNITS 25 MCG TAB PO SCH (09:00)
[2022-01-09] MEDS ORDERED: ADVANCED PROBIOTIC 1250 MG CAPSULE PO SCH (09:00)
[2022-01-09] MEDS ORDERED: NON-FORMULARY MEDICATION (Glucosamine-Chondroitin [Osteo Bi-Flex] 250-200 mg tablet) PO SCH (09:00)
[2022-01-09] MEDS ORDERED: CETIRIZINE HCL 10 MG TABLET PO SCH (09:00)
[2022-01-09] MEDS ORDERED: CLOPIDOGREL BISULFATE 300 MG TAB PO ONE (11:57)
--- NOTE | 2022-01-09 12:02 | XCELERA ---
[id number]
[2022-01-09] MEDS ORDERED: STROKE PATIENT DISCHARGE STA (15:58)
--- NOTE | 2022-01-09 17:23 | Billing Data ---
Date of Service January 09, 2022 Coding Level of Care Code 96412 OBS Care - Discharge
--- NOTE | 2022-01-10 06:20 | Electrocardiogram Report ---
Test Reason : Blood Pressure : / mmHG Vent. Rate : 088 BPM Atrial Rate : 088 BPM P-R Int : 152 ms QRS Dur : 082 ms QT Int : 388 ms P-R-T Axes : 057 057 067 degrees QTc Int : 469 ms Normal sinus rhythm Cannot rule out Anterior infarct , age undetermined Abnormal ECG When compared with ECG of 05-JUL-2002 08:58, No significant change was found Confirmed by Jeison Ballesteros ([id number]) on 01/10/2022 6:19:38 AM Referred By: REFERRED SELF Confirmed By:Jeiosn Ballesteros
[2022-01-10] MEDS ORDERED: CLOPIDOGREL BISULFATE 75 MG TAB PO SCH (09:00)
== END 2022-01-09 17:35 | disposition home or self-care (01) ==
LOC: 2N 13:16 → ED 13:16 → SUATTDRO 15:04 → 2N 18:24